=== PATIENT | female | born 1945 | race Hispanic/Latino ===

== ENCOUNTER → 2017-06-18 | Outpatient (CLI) | payer OTHER | END | disposition home or self-care (01) | LOC: RAH 09:29 | PROVIDERS: ATTEND Family Medicine | DX: Z12.31 Encounter for screening mammogram for malignant neoplasm of breast (principal) | CPT/HCPCS: 77067 ==

== ENCOUNTER → 2018-06-19 | Outpatient (CLI) | payer OTHER | END | disposition home or self-care (01) | LOC: RAH 10:09 | PROVIDERS: ATTEND Family Medicine | DX: Z12.31 Encounter for screening mammogram for malignant neoplasm of breast (principal) | CPT/HCPCS: 77067 ==

== ENCOUNTER → 2019-07-24 | Outpatient (CLI) | payer OTHER | END | disposition home or self-care (01) | LOC: RAH 13:10 | PROVIDERS: ATTEND Family Medicine | DX: Z12.31 Encounter for screening mammogram for malignant neoplasm of breast (principal) | CPT/HCPCS: 77067 ==

== ENCOUNTER → 2020-08-06 | Outpatient (CLI) | payer MEDICARE | END | disposition home or self-care (01) | LOC: RAH 10:42 | PROVIDERS: ATTEND Family Medicine | DX: Z12.31 Encounter for screening mammogram for malignant neoplasm of breast (principal) | CPT/HCPCS: 77067 ==

== ENCOUNTER → 2021-08-10 | Outpatient (CLI) | payer MEDICARE | END | disposition home or self-care (01) | LOC: RAH 09:27 | PROVIDERS: ATTEND Family Medicine | DX: Z12.31 Encounter for screening mammogram for malignant neoplasm of breast (principal) | CPT/HCPCS: 77067 ==

== ENCOUNTER → 2022-08-11 | Outpatient (CLI) | payer MEDICARE ==
[~2022-08-11] MED LIST: ANAG1CAP3 PO; ASPI-1197 PO; ATOR40TA71 PO; CLOP75TA32 PO; CYCL30DR OU; LATA2.5D14 OU; METO25TA6 PO; PANT40TA PO
== END | disposition home or self-care (01) ==
LOC: RAH 10:25
PROVIDERS: ATTEND Family Medicine
DX: Z12.31 Encounter for screening mammogram for malignant neoplasm of breast (principal)
CPT/HCPCS: 77067

== ENCOUNTER → 2022-08-23 | Outpatient (CLI) | payer MEDICARE | END | disposition home or self-care (01) | LOC: SHCH 08:59 | PROVIDERS: ATTEND Internal Medicine | DX: R09.89 Other specified symptoms and signs involving the circulatory and respiratory systems (principal) | CPT/HCPCS: 93880 ==

== ENCOUNTER → 2022-08-29 | Outpatient (CLI) | payer MEDICARE | END | disposition home or self-care (01) | LOC: SHCH 09:29 | PROVIDERS: ATTEND Internal Medicine | DX: I08.8 Other rheumatic multiple valve diseases (principal); I25.3 Aneurysm of heart; I31.39 Other pericardial effusion (noninflammatory); I25.10 Atherosclerotic heart disease of native coronary artery without angina pectoris; E78.5 Hyperlipidemia, unspecified | CPT/HCPCS: 93306 ==

== ENCOUNTER → 2022-09-05 | Outpatient (CLI) | payer MEDICARE ==
[2022-09-05 12:27] LABS: CHOLESTEROL 127 mg/dL (<200); HDL CHOLESTEROL 65 mg/dL (35-85); LDL DIRECT 44 mg/dL (0-99); TRIGLYCERIDES 77 mg/dL (30-200)
== END | disposition home or self-care (01) ==
LOC: LAB 08:07
PROVIDERS: ATTEND Internal Medicine
DX: E78.5 Hyperlipidemia, unspecified (principal)
CPT/HCPCS: 36415; 80061

== ENCOUNTER → 2022-10-10 | Outpatient (CLI) | payer MEDICARE | END | disposition home or self-care (01) | LOC: RAH 12:24 | PROVIDERS: ATTEND Obstetrics & Gynecology | DX: N63.11 Unspecified lump in the right breast, upper outer quadrant (principal) | CPT/HCPCS: 76641; 77065 ==

== ENCOUNTER → 2022-10-20 | Outpatient (CLI) | payer MEDICARE | END | disposition home or self-care (01) | LOC: RAH 08:37 | PROVIDERS: ATTEND Obstetrics & Gynecology | DX: N63.21 Unspecified lump in the left breast, upper outer quadrant (principal) | CPT/HCPCS: 76641; 77065 ==

== ENCOUNTER → 2022-10-31 | Outpatient (CLI) | payer MEDICARE ==
[2022-10-31 08:19] LABS: INR 1.03 (0.85-1.15); PROTHROMBIN TIME 11.9 SEC (9.6-11.6)
[2022-10-31 08:20] LABS: PARTIAL THROMBOPLASTIN TIME 36.2 SEC (26.3-35.5)
== END | disposition home or self-care (01) ==
LOC: RAH 07:40
PROVIDERS: ATTEND Internal Medicine Hematology & Oncology
DX: D68.9 Coagulation defect, unspecified (principal); C18.9 Malignant neoplasm of colon, unspecified; D50.9 Iron deficiency anemia, unspecified; Z88.8 Allergy status to other drugs, medicaments and biological substances
CPT/HCPCS: 76642; 85610; 85730

== ENCOUNTER 2023-02-28 15:09 | Observation (INO) | payer MEDICARE ==
[~2023-02-28] VITALS: Ht 160 cm; Wt 70.3 kg
[2023-02-28] MEDS ORDERED: METOCLOPRAMIDE 10 MG/2 ML VIAL IVP ONE (16:30)
[2023-02-28] MEDS ORDERED: PANTOPRAZOLE 40 MG/VIAL IVP ONE (16:30)
[2023-02-28] MEDS ORDERED: LACTATED RINGERS 1000ML 1,000 ML IV ONE (16:30)
[2023-02-28] MEDS ORDERED: MORPHINE 2 MG SYG IVP ONE (16:30)
[2023-02-28 16:55] LABS: BASOPHILS % (AUTO) 1.1 % (0.0-5.0); EOSINOPHILS # (AUTO) 0.14 K/uL (0.00-0.70); EOSINOPHILS % (AUTO) 1.5 % (0.0-8.0); HEMATOCRIT 30.1 % (36-48); IMMATURE GRANULOCYTE ABSOLUTE 0.07 K/uL (0-1); LYMPHOCYTES # (AUTO) 1.3 K/uL (1.0-4.8); LYMPHOCYTES % (AUTO) 14.6 % (21.0-51.0); MEAN CORPUSCULAR HEMOGLOBIN 27.6 pg (27.0-33.0); MEAN CORPUSCULAR HGB CONC 31.6 g/dL (32.0-36.0); MEAN CORPUSCULAR VOLUME 87.5 fL (79-99); MONOCYTES # (AUTO) 0.7 K/uL (0.1-1.0); MONOCYTES % (AUTO) 7.7 % (3.0-13.0); NEUTROPHILS # (AUTO) 6.8 K/uL (1.8-7.7); NEUTROPHILS % (AUTO) 74.3 % (40.0-77.0); PLATELET COUNT (AUTO) 373 K/uL (130-400); RED BLOOD CELL COUNT(AUTO) 3.44 MIL/uL (4.00-5.50); RED CELL DISTRIBUTION WIDTH 16.1 % (11.0-15.5); WHITE BLOOD COUNT (AUTO) 9.1 K/uL (4.8-10.8)
[2023-02-28 17:13] LABS: INR 1.04 (0.85-1.15); PARTIAL THROMBOPLASTIN TIME 37.9 SEC (26.3-35.5)
[2023-02-28 17:15] LABS: APPEARANCE,URINE CLEAR (CLEAR); BILIRUBIN,URINE NEGATIVE (NEGATIVE); COLOR,URINE LIGHT-YELLOW (YELLOW); GLUCOSE, URINE (UA) NEGATIVE (NEGATIVE); KETONES,URINE NEGATIVE (NEGATIVE); LEUKOCYTE ESTERASE ,URINE NEGATIVE Leu/uL (NEGATIVE); NITRATE,URINE NEGATIVE (NEGATIVE); PROTEIN,URINE NEGATIVE (NEGATIVE); UROBILINOGEN,URINE 0.2 mg/dL (0.2-1.0)
[2023-02-28 17:34] LABS: ADD UA MICROSCOPIC YES
[2023-02-28 17:35] LABS: BACTERIA,URINE RARE /HPF (None Seen)
[2023-02-28 18:00] LABS: ALBUMIN 3.3 g/dL (3.5-5.0); BILIRUBIN,TOTAL 0.7 mg/dL (0.2-1.0); CREATININE 1.2 mg/dL (0.5-1.5); POTASSIUM 4.8 mmol/L (3.5-5.1); TOTAL PROTEIN, SERUM 6.5 g/dL (6.0-8.3)
[2023-02-28] MEDS ORDERED: IOHEXOL-350 75 ML VIAL IV ONE (18:36)
[2023-02-28] MEDS ORDERED: PEG 3350/NA SULF,BICARB,CL/KCL 4000 ML SOLN PO ONE (19:30)
[2023-02-28] MEDS ORDERED: LACTULOSE 20 GM/30 ML UDCUP PO ONE (19:30)
[2023-02-28] MEDS ORDERED: KCL 20 MEQ ERTAB PO PRN (20:00)
[2023-02-28] MEDS ORDERED: POTASSIUM CHLORIDE 10% ELIXIR 20 MEQ/15 ML UDCUP PO PRN (20:00)
[2023-02-28] MEDS ORDERED: MAGNESIUM 2GM PREMIX 50ML 50 ML IV PRN (20:00)
[2023-02-28] MEDS ORDERED: POTASSIUM CHLORIDE 20MEQ/100ML 100 ML IV PRN (20:00)
[2023-02-28 20:01] LABS: HEMATOCRIT 31.6 % (36-48)
[2023-02-28] MEDS ORDERED: METO-408 PO (20:05)
[2023-02-28] MEDS ORDERED: RANO500T6 PO (20:05)
[2023-02-28] MEDS ORDERED: FOLI1TAB85 PO (20:05)
[2023-02-28] MEDS ORDERED: SACU1TAB PO (20:05)
[2023-02-28] MEDS ORDERED: IRON COMPLEX PO (20:05)
[2023-02-28 22:28] VITALS: BP 157/68; PULSE 91; RESP 18
[2023-03-01] VITALS (8 sets, daily range): BP systolic 127–160; BP diastolic 50–79; PULSE 76–86; RESP 16–18; O2SAT 100
[2023-03-01 06:55] LABS: BASOPHILS # (AUTO) 0.12 K/uL (0.00-0.20); BASOPHILS % (AUTO) 1.5 % (0.0-5.0); EOSINOPHILS # (AUTO) 0.12 K/uL (0.00-0.70); EOSINOPHILS % (AUTO) 1.5 % (0.0-8.0); HEMATOCRIT 29.5 % (36-48); IMMATURE GRANULOCYTE ABSOLUTE 0.07 K/uL (0-1); LYMPHOCYTES # (AUTO) 1.4 K/uL (1.0-4.8); LYMPHOCYTES % (AUTO) 17.5 % (21.0-51.0); MEAN CORPUSCULAR HEMOGLOBIN 28.2 pg (27.0-33.0); MEAN CORPUSCULAR HGB CONC 31.9 g/dL (32.0-36.0); MEAN CORPUSCULAR VOLUME 88.6 fL (79-99); MONOCYTES # (AUTO) 0.6 K/uL (0.1-1.0); MONOCYTES % (AUTO) 7.6 % (3.0-13.0); NEUTROPHILS # (AUTO) 5.7 K/uL (1.8-7.7); PLATELET COUNT (AUTO) 299 K/uL (130-400); RED BLOOD CELL COUNT(AUTO) 3.33 MIL/uL (4.00-5.50); RED CELL DISTRIBUTION WIDTH 16.1 % (11.0-15.5)
[2023-03-01 07:14] LABS: ALBUMIN 3.2 g/dL (3.5-5.0); BILIRUBIN,TOTAL 0.7 mg/dL (0.2-1.0); CREATININE 1.2 mg/dL (0.5-1.5); MAGNESIUM 1.8 mg/dL (1.80-2.40); POTASSIUM 4.2 mmol/L (3.5-5.1); TOTAL PROTEIN, SERUM 6.3 g/dL (6.0-8.3)
[2023-03-01] MEDS: PANTOPRAZOLE 40 MG/VIAL IVP SCH ×2 (09:59→21:00)
[2023-03-01] MEDS ORDERED: MAGNESIUM CITRATE 296 ML SOLUTION PO ONE (10:00)
[2023-03-01] MEDS ORDERED: LACTULOSE 20 GM/30 ML UDCUP PO ONE ×2 (14:45→16:00)
[2023-03-01] MEDS ORDERED: PEG 3350/NA SULF,BICARB,CL/KCL 4000 ML SOLN PO ONE (15:00)
[2023-03-01] MEDS: ANAGRELIDE HCL PO SCH (21:00)
[2023-03-01] MEDS ORDERED: METOPROLOL SUCCINATE 25 MG TAB.SR.24H PO SCH (21:00)
[2023-03-01] MEDS ORDERED: ATORVASTATIN 40 MG TABLET PO SCH (21:00)
[2023-03-01] MEDS: SACUBITRIL/VALSARTAN 1 EACH TABLET PO SCH (21:00)
[2023-03-01] MEDS ORDERED: RANOLAZINE 500 MG TAB.SR.12H PO SCH (21:00)
[2023-03-01] MEDS ORDERED: BISACODYL 5 MG TABLET.DR PO SCH (22:00)
[2023-03-02] VITALS (20 sets, daily range): BP systolic 118–148; BP diastolic 42–70; PULSE 62–88; RESP 15–18; O2SAT 100
[2023-03-02 05:48] LABS: BASOPHILS # (AUTO) 0.16 K/uL (0.00-0.20); BASOPHILS % (AUTO) 1.3 % (0.0-5.0); EOSINOPHILS # (AUTO) 0.14 K/uL (0.00-0.70); EOSINOPHILS % (AUTO) 1.2 % (0.0-8.0); HEMATOCRIT 33.7 % (36-48); IMMATURE GRANULOCYTE ABSOLUTE 0.16 K/uL (0-1); LYMPHOCYTES # (AUTO) 1.8 K/uL (1.0-4.8); LYMPHOCYTES % (AUTO) 14.7 % (21.0-51.0); MEAN CORPUSCULAR HEMOGLOBIN 28.9 pg (27.0-33.0); MEAN CORPUSCULAR HGB CONC 32.3 g/dL (32.0-36.0); MEAN CORPUSCULAR VOLUME 89.4 fL (79-99); MONOCYTES # (AUTO) 0.8 K/uL (0.1-1.0); MONOCYTES % (AUTO) 6.9 % (3.0-13.0); NEUTROPHILS # (AUTO) 9.1 K/uL (1.8-7.7); NEUTROPHILS % (AUTO) 74.6 % (40.0-77.0); PLATELET COUNT (AUTO) 418 K/uL (130-400); RED BLOOD CELL COUNT(AUTO) 3.77 MIL/uL (4.00-5.50); RED CELL DISTRIBUTION WIDTH 16.5 % (11.0-15.5); WHITE BLOOD COUNT (AUTO) 12.2 K/uL (4.8-10.8)
[2023-03-02 05:58] LABS: ALBUMIN 3.5 g/dL (3.5-5.0); BILIRUBIN,TOTAL 1.1 mg/dL (0.2-1.0); CREATININE 1.3 mg/dL (0.5-1.5); MAGNESIUM 2.4 mg/dL (1.80-2.40); POTASSIUM 3.9 mmol/L (3.5-5.1)
[2023-03-02 06:02] LABS: INR 1.03 (0.85-1.15); PROTHROMBIN TIME 11.9 SEC (9.6-11.6)
[2023-03-02 06:04] LABS: PARTIAL THROMBOPLASTIN TIME 39.8 SEC (26.3-35.5)
[2023-03-02] MEDS ORDERED: Vitamin B Complex/Vit C/Folic Acid PO SCH (09:00)
[2023-03-02] MEDS: ANAGRELIDE HCL PO SCH (09:00)
[2023-03-02] MEDS: SACUBITRIL/VALSARTAN 1 EACH TABLET PO SCH (09:00)
[2023-03-02] MEDS: PANTOPRAZOLE 40 MG/VIAL IVP SCH (09:01)
[2023-03-02] MEDS ORDERED: ZOSYN 3.375GM +NS 50ML IV SCH (10:00)
[2023-03-02] MEDS ORDERED: PROPOFOL 10 MG/ML 20ML VIAL IV ONE (13:46)
[2023-03-02] MEDS ORDERED: SIMETHICONE 40 MG/0.6 ML ML ONE (14:07)
[2023-03-02] MEDS ORDERED: PANT40TA PO (15:38)
== END 2023-03-02 18:35 | disposition home or self-care (01) ==
LOC: EDH 15:09 → INTOOBSV 19:28 → EDHIP 19:28 → 3DH 20:55
PROVIDERS: ADMIT Hospitalist; ATTEND Hospitalist
DX: K92.2 Gastrointestinal hemorrhage, unspecified (principal); D62 Acute posthemorrhagic anemia; E44.1 Mild protein-calorie malnutrition; K44.9 Diaphragmatic hernia without obstruction or gangrene; K21.00 Gastro-esophageal reflux disease with esophagitis, without bleeding; I25.2 Old myocardial infarction; I25.10 Atherosclerotic heart disease of native coronary artery without angina pectoris; K64.8 Other hemorrhoids; Z79.02 Long term (current) use of antithrombotics/antiplatelets; Z90.49 Acquired absence of other specified parts of digestive tract; Z90.710 Acquired absence of both cervix and uterus; Z79.899 Other long term (current) drug therapy; Z98.890 Other specified postprocedural states; Z87.19 Personal history of other diseases of the digestive system; Z95.5 Presence of coronary angioplasty implant and graft; Z79.82 Long term (current) use of aspirin; Z68.27 Body mass index [BMI] 27.0-27.9, adult
CPT/HCPCS: 96361; 96375; 99285; 80053 ×3; 83690; 85025 ×3; 85610 ×2; 85730 ×2; 85014 ×2; 85018 ×2; 86850; 86900; 86901; 82270; 81001; 36415 ×3; 74178; 93005; 96376 ×2; 96365; 96366 ×2; 83735 ×2; 96367; 43235; 45382; J7120; C9113 ×4; J2765; Q9967; G0378 ×29; J3475 ×2; J2704; J2543; A4620; A4215; A4223; A7002; A4222; J7030; J3490

== ENCOUNTER → 2023-09-19 | Outpatient (CLI) | payer MEDICARE ==
[~2023-09-19] MED LIST changes: +ANAG1CAP11 PO; -ANAG1CAP3 PO; -CYCL30DR OU; +FOLI1TAB85 PO; +IRON COMPLEX PO; -LATA2.5D14 OU; +METO-408 PO; -METO25TA6 PO; +RANO500T6 PO; +SACU1TAB PO
== END | disposition home or self-care (01) ==
LOC: SHCH 10:32
PROVIDERS: ATTEND Internal Medicine
DX: I42.9 Cardiomyopathy, unspecified (principal)
CPT/HCPCS: 93306

== ENCOUNTER 2023-11-20 06:52 | Day surgery (SDC) | payer MEDICARE ==
[2023-11-16 13:54] LABS: BASOPHILS % (AUTO) 1.3 % (0.0-5.0); EOSINOPHILS # (AUTO) 0.14 K/uL (0.00-0.70); EOSINOPHILS % (AUTO) 1.8 % (0.0-8.0); HEMATOCRIT 29.7 % (36-48); IMMATURE GRANULOCYTE ABSOLUTE 0.08 K/uL (0-1); LYMPHOCYTES # (AUTO) 1.5 K/uL (1.0-4.8); LYMPHOCYTES % (AUTO) 18.6 % (21.0-51.0); MEAN CORPUSCULAR HGB CONC 31.6 g/dL (32.0-36.0); MEAN CORPUSCULAR VOLUME 91.7 fL (79-99); MONOCYTES # (AUTO) 0.7 K/uL (0.1-1.0); MONOCYTES % (AUTO) 9.3 % (3.0-13.0); NEUTROPHILS # (AUTO) 5.4 K/uL (1.8-7.7); PLATELET COUNT (AUTO) 309 K/uL (130-400); RED BLOOD CELL COUNT(AUTO) 3.24 MIL/uL (4.00-5.50); RED CELL DISTRIBUTION WIDTH 15.7 % (11.0-15.5); WHITE BLOOD COUNT (AUTO) 7.9 K/uL (4.8-10.8)
[2023-11-16 14:00] LABS: CREATININE 1.4 mg/dL (0.5-1.0); POTASSIUM 4.7 mmol/L (3.5-5.1)
[2023-11-16 14:03] LABS: INR 1.18 (0.85-1.15); PROTHROMBIN TIME 12.6 SEC (9.6-11.6)
[2023-11-16 14:05] LABS: PARTIAL THROMBOPLASTIN TIME 35.2 SEC (26.3-35.5)
[2023-11-16 14:08] VITALS: BP 140/70; PULSE 68; RESP 17; TEMP 97.8
[2023-11-16 15:12] LABS: B-TYPE NATRIURETIC PEPTIDE 532 pg/mL (0-100)
[2023-11-20] VITALS (8 sets, daily range): BP systolic 123–147; BP diastolic 59–77; PULSE 70–89; RESP 9–18; TEMP 97.7–98.6
[~2023-11-20] VITALS: Ht 157.5 cm; Wt 63.7 kg
[~2023-11-20 06:52] MED LIST changes: +ASCO500C18 PO; -ASPI-1197 PO; +CARB15DR OP; +CHOL-34 PO; +CITRACAL PO; +LACT1TAB26 PO; +LATA2.5D14 OU; +PRED50TA2 PO; +SALINE NASAL; +VITA1CAP85 PO; +[UNRECOGNIZED DRUG - OTHER] PO; +[UNRECOGNIZED DRUG - OTHER] PO; +estradiol VG; +fiber PO; +one a day PO
[2023-11-20] MEDS: 0.9%NACL 1000ML 1,000 ML IV ONE (08:02)
[2023-11-20] MEDS ORDERED: LIDOCAINE HCL 400MG/20ML VIAL ONE ×3 (08:11→10:16)
[2023-11-20] MEDS ORDERED: IOHEXOL 350 MG/ML 100ML INFUS..BTL IV ONE ×2 (08:11→09:24)
[2023-11-20] MEDS ORDERED: HEParin-NS 1,000 UNIT/500 ML 0 ML IV ONE (08:12)
[2023-11-20] MEDS ORDERED: VERAPAMIL HCL 2.5 MG/ML VIAL ONE ×2 (08:12→09:24)
[2023-11-20] MEDS ORDERED: HEParin 10,000 UNIT/10ML (1,000 UNIT/ML) VIAL ONE ×2 (08:12→10:48)
[2023-11-20] MEDS ORDERED: NITROGLYCERIN 50MG VIAL ONE ×2 (08:14→09:25)
[2023-11-20] MEDS: DiphenhydrAMINE HCL 50 MG/ML VIAL IV ONE (09:20)
[2023-11-20] MEDS ORDERED: HEParin-NS 1,000 UNIT/500 ML 1,000 ML IV ONE (09:24)
[2023-11-20] MEDS ORDERED: MIDAZOLAM HCL 1 MG/ML 2ML VIAL ONE (09:52)
[2023-11-20] MEDS ORDERED: FENTanyl CITRate PF 50 MCG/1 ML 2ML VIAL ONE (09:52)
[2023-11-20] MEDS ORDERED: IOHEXOL-350 50ML VIAL IV ONE (10:06)
[2023-11-20] MEDS ORDERED: HEParin-NS 1,000 UNIT/500 ML 500 ML IV ONE (10:09)
[2023-11-20] MEDS ORDERED: BIVALIRUDIN 250 MG/VIAL IV ONE (10:48)
[2023-11-20] MEDS ORDERED: ASPIRIN 81MG CHEW TAB ONE (11:26)
[2023-11-20] MEDS: 0.9%NACL 1000ML 1,000 ML IV SCH (12:00)
== END 2023-11-20 14:10 | disposition home or self-care (01) ==
LOC: DAH 06:52
PROVIDERS: ATTEND Internal Medicine
DX: I25.118 Atherosclerotic heart disease of native coronary artery with other forms of angina pectoris (principal); I50.22 Chronic systolic (congestive) heart failure; I35.0 Nonrheumatic aortic (valve) stenosis; I25.5 Ischemic cardiomyopathy; I51.89 Other ill-defined heart diseases; I51.7 Cardiomegaly; I34.0 Nonrheumatic mitral (valve) insufficiency; E78.5 Hyperlipidemia, unspecified; I73.9 Peripheral vascular disease, unspecified; Z85.038 Personal history of other malignant neoplasm of large intestine; K58.9 Irritable bowel syndrome, unspecified; Z88.8 Allergy status to other drugs, medicaments and biological substances; Z79.899 Other long term (current) drug therapy
CPT/HCPCS: 80048; 83880; 85025; 85610; 85730; 36415; 71045; 93005; 93460; C9600; C1769 ×2; C1887; C1894 ×4; C1725; C1874; C1760 ×2; J1200; J3010; J3490 ×3; J7030; J1644 ×3; J2250; Q9967 ×2; A4215; A4222; A4221; A4663; A4216; A4606; Q9965 ×2; A4223 ×3; 96360; 96361; 99156; 99157; J0583

== ENCOUNTER → 2023-12-21 | Outpatient (CLI) | payer MEDICARE | END | disposition home or self-care (01) | LOC: SHCH 10:17 | PROVIDERS: ATTEND Internal Medicine | DX: I70.293 Other atherosclerosis of native arteries of extremities, bilateral legs (principal) | CPT/HCPCS: 93925 ==

== ENCOUNTER → 2024-01-28 | Outpatient (CLI) | payer MEDICARE ==
[~2024-01-28] MED LIST changes: +ASPI-1197 PO; +CYAN100099 PO; +DAPA10TA PO; +MV-M1TAB57 PO
[2024-01-28 12:10] LABS: BASOPHILS # (AUTO) 0.16 K/uL (0.00-0.20); BASOPHILS % (AUTO) 1.9 % (0.0-5.0); EOSINOPHILS # (AUTO) 0.24 K/uL (0.00-0.70); EOSINOPHILS % (AUTO) 2.8 % (0.0-8.0); HEMATOCRIT 32.6 % (36-48); IMMATURE GRANULOCYTE ABSOLUTE 0.09 K/uL (0-1); LYMPHOCYTES # (AUTO) 1.7 K/uL (1.0-4.8); LYMPHOCYTES % (AUTO) 19.2 % (21.0-51.0); MEAN CORPUSCULAR VOLUME 93.7 fL (79-99); MONOCYTES # (AUTO) 0.7 K/uL (0.1-1.0); MONOCYTES % (AUTO) 7.7 % (3.0-13.0); NEUTROPHILS # (AUTO) 5.8 K/uL (1.8-7.7); NEUTROPHILS % (AUTO) 67.4 % (40.0-77.0); PLATELET COUNT (AUTO) 363 K/uL (130-400); RED BLOOD CELL COUNT(AUTO) 3.48 MIL/uL (4.00-5.50); RED CELL DISTRIBUTION WIDTH 14.6 % (11.0-15.5); WHITE BLOOD COUNT (AUTO) 8.6 K/uL (4.8-10.8)
[2024-01-28 12:22] LABS: CREATININE 1.3 mg/dL (0.5-1.0); POTASSIUM 4.9 mmol/L (3.5-5.1)
[2024-01-28 12:23] LABS: INR 1.21 (0.85-1.15); PROTHROMBIN TIME 12.9 SEC (9.6-11.6)
[2024-01-28 12:25] LABS: PARTIAL THROMBOPLASTIN TIME 33.9 SEC (26.3-35.5)
[2024-01-28 12:30] LABS: B-TYPE NATRIURETIC PEPTIDE 274 pg/mL (0-100)
== END | disposition home or self-care (01) ==
LOC: LAB 10:08
PROVIDERS: ATTEND Internal Medicine
DX: I25.10 Atherosclerotic heart disease of native coronary artery without angina pectoris (principal); I73.9 Peripheral vascular disease, unspecified; I50.22 Chronic systolic (congestive) heart failure
CPT/HCPCS: 36415; 80048; 83880; 85025; 85610; 85730

== ENCOUNTER 2024-02-05 09:08 | Day surgery (SDC) | payer MEDICARE ==
--- NOTE | 2024-02-01 10:53 | EKG ---
[facility] Test Date: 2024-02-01 Test Time: 11:41:20 Pat Name: RADHA REINA Department: [facility] Room: Gender: F Manager Meeting: [id number] : 1945 Requested By: SHIVAM OLIVAS Order Number: [id number] Reading MD: Jono Horner Measurements Intervals [place] Rate: 61 P: 23 [place]: 251 QRS: 5 QRSD: 83 T: 51 QT: 431 QTc: 436 Interpretive Statements Sinus rhythm Prolonged OH interval Compared to ECG 11/16/2023 13:42:39 No significant changes Electronically Signed On 02-01-2024 16:16:54 SHEAR OPERATOR AUTOMATIC by Jono Horner Please click the below link to view image of tracing.
[2024-02-01 11:17] LABS: POTASSIUM 4.4 mmol/L (3.5-5.1)
[2024-02-01 11:18] VITALS: BP 143/69; PULSE 62; RESP 17; TEMP 97.1
[2024-02-01 11:18] LABS: CREATININE 1.3 mg/dL (0.5-1.0)
[2024-02-01 11:35] LABS: INR 1.14 (0.85-1.15); PROTHROMBIN TIME 12.2 SEC (9.6-11.6)
[2024-02-01 11:49] LABS: PARTIAL THROMBOPLASTIN TIME 34.9 SEC (26.3-35.5)
[2024-02-01 11:58] LABS: BASOPHILS % (AUTO) 1.7 % (0.0-5.0); EOSINOPHILS % (AUTO) 1.8 % (0.0-8.0); HEMATOCRIT 30.9 % (36-48); LYMPHOCYTES % (AUTO) 15.8 % (21.0-51.0); MEAN CORPUSCULAR HEMOGLOBIN 28.7 pg (27.0-33.0); MEAN CORPUSCULAR HGB CONC 31.1 g/dL (32.0-36.0); MEAN CORPUSCULAR VOLUME 92.5 fL (79-99); MONOCYTES % (AUTO) 7.8 % (3.0-13.0); NEUTROPHILS % (AUTO) 71.6 % (40.0-77.0); PLATELET COUNT (AUTO) 355 K/uL (130-400); RED BLOOD CELL COUNT(AUTO) 3.34 MIL/uL (4.00-5.50); RED CELL DISTRIBUTION WIDTH 14.8 % (11.0-15.5); WHITE BLOOD COUNT (AUTO) 9.2 K/uL (4.8-10.8)
[2024-02-01 11:59] LABS: BASOPHILS # (AUTO) 0.16 K/uL (0.00-0.20); EOSINOPHILS # (AUTO) 0.17 K/uL (0.00-0.70); LYMPHOCYTES # (AUTO) 1.5 K/uL (1.0-4.8); MONOCYTES # (AUTO) 0.7 K/uL (0.1-1.0); NEUTROPHILS # (AUTO) 6.6 K/uL (1.8-7.7); NUCLEATED RED BLOOD CELLS 0.1 % (0.0-0.19)
[2024-02-01 13:10] LABS: B-TYPE NATRIURETIC PEPTIDE 344 pg/mL (0-100)
--- NOTE | 2024-02-04 16:49 | NUR ---
RE: LABS REPORTED CBC RESULTS AND BUN 34/CREAT 1.[address] OLIVAS. NO NEW ORDERS RECEIVED.
[~2024-02-05] VITALS: Ht 154.9 cm; Wt 64.8 kg
[2024-02-05] VITALS (23 sets, daily range): BP systolic 98–153; BP diastolic 40–69; PULSE 74–93; RESP 11–16; TEMP 97.2–97.4
[~2024-02-05 09:08] MED LIST changes: -CARB15DR OP; -PRED50TA2 PO; -RANO500T6 PO; -SALINE NASAL; -VITA1CAP85 PO; -[UNRECOGNIZED DRUG - OTHER] PO; -fiber PO; -one a day PO
[2024-02-05] MEDS: 0.9%NACL 1000ML 1,000 ML IV ONE (09:46)
[2024-02-05] MEDS ORDERED: LIDOCAINE HCL 400MG/20ML VIAL ONE (10:58)
[2024-02-05] MEDS ORDERED: NITROGLYCERIN 50MG VIAL ONE (10:59)
[2024-02-05] MEDS ORDERED: HEParin-NS 1,000 UNIT/500 ML 1,000 ML IV ONE (10:59)
[2024-02-05] MEDS ORDERED: IODIXANOL 320 MG/ML 100 ML VIAL ONE ×2 (10:59→12:58)
[2024-02-05] MEDS ORDERED: HEParin 10,000 UNIT/10ML (1,000 UNIT/ML) VIAL ONE (10:59)
[2024-02-05] MEDS ORDERED: MIDAZOLAM HCL 1 MG/ML 2ML VIAL ONE ×2 (11:24→11:44)
[2024-02-05] MEDS ORDERED: FENTanyl CITRate PF 50 MCG/1 ML 2ML VIAL ONE (11:24)
[2024-02-05] MEDS ORDERED: hydrALAZine 20MG/ML VIAL ONE (13:10)
[2024-02-05] MEDS ORDERED: hydrALAZine 20MG/ML VIAL IV PRN (13:30)
[2024-02-05] MEDS ORDERED: 0.9%NACL 1000ML 1,000 ML IV SCH (13:30)
[2024-02-05] MEDS ORDERED: acetaMINOPHEN WITH coDEINE 1 TAB TAB PO PRN (13:30)
[2024-02-05] MEDS ORDERED: ATROPINE 1MG SYG IVP ONE (15:57)
--- NOTE | 2024-02-05 16:08 | NUR ---
RE: SHEATH REMOVED 10CC BLOOD REMOVED FROM SHEATH SITE AND DISPOSED OFF. SHEATH REMOVED FROM LEFT GROIN, DSTAT APPLIED AND MANUAL PRESSURE APPLIED FOR 20 MINS. PATIENT TOLERATED WELL, NO BLEEDING OR HEMATOMA NOTED. VITAL SIGNS STABLE. PATIENT INSTRUCTED TO LAY FLAT AND KEEP LLE FLAT AND STRAIGHT, PATIENT VERBALIZED UNDERSTANDING. FAMILY AT BEDSIDE
--- NOTE | 2024-02-05 22:02 | NUR ---
patient discharged from facility via wheelchair by missael miranda and assisted into private vehicle driven by spouse
--- NOTE | 2024-02-14 10:19 | PRN ---
Cath Procedure Report CATH PROCEDURE REPORT PERIPHERAL ANGIOGRAM REPORT Date of Service: February 05, 2024 PROCEDURE: Abdominal aortogram Bilateral lower extremity peripheral angiography Percutaneous transluminal angioplasty to the right superficial femoral artery [facility] Rapid cross 4.0 x 40 mm balloon followed by Medtronic Impact 5.0 x 80 mm drug-coated balloon INDICATION: Peripheral artery disease, abnormal arterial duplex showing monophasic waveforms of the left SFA and right FIELD MAP TECHNICIAN with claudication in the bilateral lower extremities, right worse than left [place] class III. MEDICAL ASSISTANT PRN: Shivam Briones DO DESCRIPTION OF PROCEDURE: After informed consent was obtained, patient brought back to the Records Management Engineer suite in fasting state. Bilateral groins were prepped and draped in sterile fashion. 1% lidocaine was used of the subcutaneous tissues on the left side. Using ultrasound and fluoroscopic guidance, a 6 Cypriot short sheath was placed in the left common femoral artery using micropuncture technique. 5 Cypriot flush catheter was advanced into the distal abdominal aorta for abdominal aortography. Over an 035 Glidewire advantage wire, the Omni Flush catheter was advanced to the right external iliac artery for right lower extremity digital subtraction angiography. Then, we proceeded with intervention. A 6 Cypriot by 45 cm sheath was placed distal tip parked in the right common femoral artery. 70 units/kg of heparin was given via peripheral IV and ACT was monitored throughout the procedure with additional heparin given as needed to maintain a therapeutic ACT of greater than 250. Balloon angioplasty was performed to the right superficial femoral artery ostial and proximal stenosis first using a rapid cross 4.0 x 40 mm balloon followed by drug-coated balloon angioplasty with Medtronic Impact 5.0 x 80 mm balloon deployed at nominal pressures for 3 minutes. Post angioplasty angiography revealed nonflow limiting dissections persistent despite repeat 1 minute balloon inflation to this region. Patient tolerated the procedure well without immediate complications. Hemostasis achieved at the left common femoral artery with use of manual pressure. FINDINGS: Abdominal aorta: Patent, angiographically free of disease Right lower extremity Common iliac:Patent, angiographically free of disease External iliac:Patent, angiographically free of disease Internal iliac:Patent, angiographically free of disease Profunda:Patent, angiographically free of disease Superficial femoral artery: There is eccentric 80% stenosis at the ostial to proximal, with subsequent 70% tandem stenosis. These lesions were treated with balloon angioplasty and drug-coated balloon angioplasty to less than 20% residual with results of nonflow limiting dissections in the treatment zone. The distal SFA with mild diffuse disease. Popliteal: 20 to 20% popliteal stenosis Anterior tibialis: TP trunk:Patent, angiographically free of disease Peroneal: Patent, angiographically free of disease Posterior tibialis: 50 to 60% distal posterior tibialis Left lower extremity Common iliac:Patent, angiographically free of disease External iliac:Patent, angiographically free of disease Internal iliac:Patent, angiographically free of disease Profunda:Patent, angiographically free of disease Superficial femoral artery: There are tandem stenosis of the proximal left SFA percent, followed by proximal to mid 50 to 60% focal stenosis. Mid SFA with 30% stenosis. Popliteal: Proximal 40 to 50% stenosis Anterior tibialis:Patent, angiographically free of disease TP trunk:Patent, angiographically free of disease Peroneal:Patent, angiographically free of disease Posterior tibialis: 30 to 40% distal stenosis There is three-vessel runoff to the bilateral feet however poor outflow extending from the midfoot on the left. SUMMARY: 1. Right superficial femoral artery ostial to proximal stenosis of 80% followed by 70% status percutaneous transluminal angioplasty using rapid cross POBA followed by Medtronic Impact drug-coated balloon angioplasty. 2. Consider staged intervention the Left superficial femoral artery stenoses. SHIVAM BRIONES DO Feb 14, 2024 10:19
== END 2024-02-05 22:02 | disposition home or self-care (01) ==
LOC: DAH 09:08
PROVIDERS: ATTEND Internal Medicine
DX: I70.213 Atherosclerosis of native arteries of extremities with intermittent claudication, bilateral legs (principal); I25.10 Atherosclerotic heart disease of native coronary artery without angina pectoris; E78.5 Hyperlipidemia, unspecified; I35.0 Nonrheumatic aortic (valve) stenosis; Z85.038 Personal history of other malignant neoplasm of large intestine; Z95.5 Presence of coronary angioplasty implant and graft; I25.2 Old myocardial infarction; Z88.8 Allergy status to other drugs, medicaments and biological substances; Z79.82 Long term (current) use of aspirin; Z79.01 Long term (current) use of anticoagulants; Z79.899 Other long term (current) drug therapy
CPT/HCPCS: 80048; 83880; 85025; 85610; 85730 ×2; 36415 ×2; 93005; 37224; 75716; 85347 ×3; A6260; C1725; C1894 ×2; C1893; C2623; C1769 ×3; C1887; J3010; J3490 ×2; J7030; J0360; J1644 ×2; J2250 ×2; Q9967; A4215; A4222; A4221; A4663; A4216; A4606; A4223 ×3; 99156; 99157; J0461

== ENCOUNTER → 2024-06-17 | Outpatient (CLI) | payer MEDICARE ==
--- NOTE | 2024-06-18 17:08 | HMCSR ---
APPROVED REPORT Laterality: Bilateral Indications PVD VELOCITY AND DOPPLER WAVEFORM ANALYSIS Ext Iliac Art. (R)cm/sec, Ext Iliac Art. (L) cm/sec, PLY BANDER (R) 146.8cm/sec, Triphasic, PLY BANDER (L) 104.2cm/sec, Triphasic, Prof Fem Art. (R) 198.3cm/sec, Biphasic, Prof Fem Art. (L) 80.8cm/sec, Biphasic, Fem Art Prox. (R) 159.9cm/sec, Triphasic, Fem Art Prox. (L) 422.7cm/sec, Monophasic, Severe > 75% Fem Art Mid. (R) 139.4cm/sec, Biphasic, Fem Art Mid. (L) 32.1cm/sec, Monophasic, Fem Art Dist (R) 71.8cm/sec, Biphasic, Fem Art Dist. (L) 57.2cm/sec, Monophasic, Pop Art(AK) (R) 112.3cm/sec, Biphasic, Pop Art (AK) (L) 43.7cm/sec, Monophasic, Pop Art (Fossa)(R) 104.2cm/sec, Biphasic, Pop Art (Fossa) (L) 55.5cm/sec, Monophasic, Pop Art(BK) (R) 97.2cm/sec, Biphasic, Pop Art (BK) (L) 42.6cm/sec, Monophasic, DEPUTY CHIEF SHERIFF Dist. (R) 58.0cm/sec, Biphasic, DEPUTY CHIEF SHERIFF Dist. (L) 21.4cm/sec, Monophasic, Per Art Dist. (R) 46.9cm/sec, Biphasic, Per Art Dist. (L) 21.3cm/sec, Monophasic, [place] Dist. (R) 63.5cm/sec, Biphasic, [place] Dist. (L) 21.6cm/sec, Monophasic, Technologist Impression Diffuse atherosclerosis throughout the bilateral lower extremities. Multiphasic waveforms seen in the RLE. Mainly monophasic waveforms seen in the LLE. Stenosis seen at the level of the LT. SFA Prox. 422.7 cm/s suggestive of >75% stenosis. Conclusion Diffuse atherosclerosis throughout the bilateral lower extremities. Multiphasic waveforms seen in the RLE. Mainly monophasic waveforms seen in the LLE. Stenosis seen at the level of the LT. SFA Prox. 422.7 cm/s suggestive of >75% stenosis. Conclusion Diffuse atherosclerosis throughout the bilateral lower extremities. Multiphasic waveforms seen in the RLE. Mainly monophasic waveforms seen in the LLE. Stenosis seen at the level of the LT. SFA Prox. 422.7 cm/s suggestive of >75% stenosis.
== END | disposition home or self-care (01) ==
LOC: SHCH 10:10
PROVIDERS: ATTEND Internal Medicine
DX: I70.203 Unspecified atherosclerosis of native arteries of extremities, bilateral legs (principal); I25.5 Ischemic cardiomyopathy
CPT/HCPCS: 93925

== ENCOUNTER → 2024-08-01 | Outpatient (CLI) | payer MEDICARE ==
[~2024-08-01] MED LIST changes: +CYAN-37 PO; -CYAN100099 PO
--- NOTE | 2024-08-01 12:22 | HMCIMG ---
CHEST 1VW HISTORY: Cough COMPARISON: 11/16/2023 FINDINGS: A frontal projection of the chest was obtained. No acute pulmonary infiltrates is seen. The heart is normal in size. Prominent interstitial markings are seen. Degenerative changes are seen. No evidence of aortic calcification is seen. IMPRESSION: 1. No acute pulmonary infiltrate is seen.
== END | disposition home or self-care (01) ==
LOC: RAH 11:30
PROVIDERS: ATTEND Internal Medicine
DX: R05.9 Cough, unspecified (principal); M47.814 Spondylosis without myelopathy or radiculopathy, thoracic region
CPT/HCPCS: 71045

== ENCOUNTER 2024-12-03 05:47 | Day surgery (SDC) | payer MEDICARE ==
[2024-12-01 12:12] LABS: IMMATURE GRANULOCYTE ABSOLUTE 0.21 K/uL (0-1); NUCLEATED RED BLOOD CELLS 0.0 % (0.0-0.19); PLATELET COUNT (AUTO) 279 K/uL (130-400); RED BLOOD CELL COUNT(AUTO) 3.15 MIL/uL (4.00-5.50); RED CELL DISTRIBUTION WIDTH 19.4 % (11.0-15.5); WHITE BLOOD COUNT (AUTO) 8.4 K/uL (4.8-10.8)
[2024-12-01 12:18] VITALS: BP 133/48; PULSE 70; RESP 16; TEMP 97.3
[2024-12-01 12:19] LABS: CREATININE 1.3 mg/dL (0.5-1.0); GLOMERULAR FILTR. RATE CALC 42.0 mL/min (>90); GLUCOSE,RANDOM 99.0 mg/dL (70-105); SODIUM SERUM 139.0 mmol/L (136-145); UREA NITROGEN, BLOOD 41.0 mg/dL (7-18)
[2024-12-01 12:22] LABS: INR 1.26 (0.85-1.15)
[2024-12-01 12:29] LABS: APPEARANCE,URINE CLEAR (CLEAR); GLUCOSE, URINE (UA) 500 mg/dL (NEGATIVE); LEUKOCYTE ESTERASE ,URINE NEGATIVE Leu/uL (NEGATIVE); NITRATE,URINE NEGATIVE (NEGATIVE); OCCULT BLOOD,URINE NEGATIVE (NEGATIVE)
[2024-12-01 12:37] LABS: ADD UA MICROSCOPIC YES
[2024-12-01 12:38] LABS: SQUAMOUS EPITHELIAL CELL,UR Rare /HPF (0-2)
--- NOTE | 2024-12-01 12:48 | EKG ---
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
--- NOTE | 2024-12-02 12:38 | HMCIMG ---
EXAM: CR Chest, 1 views. CLINICAL HISTORY: Cough. COMPARISON: None provided. FINDINGS: The lungs show no infiltrate or other acute findings. No pleural effusion or pneumothorax. Mild cardiomegaly is noted. No acute osseous abnormality. IMPRESSION: No infiltrate or effusion. Mild cardiomegaly is noted. /[place]
--- NOTE | 2024-12-02 15:37 | NUR ---
REPORT REPORTED TO DR OLIVAS INR/H&H/BUN/CREAT AND PT ALLERGIC TO TOPICAL IODINE. NO NEW ORDERS GIVEN. OK TO PROCEED
[~2024-12-03] VITALS: Ht 154.9 cm; Wt 60.3 kg
[2024-12-03] VITALS (27 sets, daily range): BP systolic 135–164; BP diastolic 47–90; PULSE 62–88; RESP 9–18; TEMP 97.2–97.8
[~2024-12-03 05:47] MED LIST changes: -ASPI-1197 PO; +FIBER CAPSULES PO; +FOLI0.8T22 PO; -FOLI1TAB85 PO; -LATA2.5D14 OU; +LATA2.5D7 OU; +MULT-1337 PO; -MV-M1TAB57 PO; +REFRESH EYE DROPS OU; +RIVA20TA PO; -SACU1TAB PO; +SACU1TAB7 PO; +[UNRECOGNIZED DRUG - REMARK] PO
[2024-12-03] MEDS: 0.9%NACL 1000ML 1,000 ML IV SCH (07:00)
[2024-12-03] MEDS ORDERED: LIDOCAINE HCL 400MG/20ML VIAL ONE ×2 (07:07→07:19)
[2024-12-03] MEDS ORDERED: HEParin-NS 1,000 UNIT/500 ML 1,000 ML IV ONE (07:07)
[2024-12-03] MEDS ORDERED: IOHEXOL 350 MG/ML 100ML INFUS..BTL IV ONE (07:07)
[2024-12-03] MEDS ORDERED: NITROGLYCERIN 50MG VIAL ONE (07:08)
[2024-12-03] MEDS ORDERED: MIDAZOLAM HCL 1 MG/ML 2ML VIAL ONE (07:32)
--- NOTE | 2024-12-03 08:26 | PRN ---
Cath Procedure Report CATH PROCEDURE REPORT CARDIAC CATHETERIZATION REPORT Date of Service: Dec 03, 2024 PROCEDURE: Left heart catheterization with selective right left coronary angiography Right heart catheterization Conscious sedation INDICATION: Aortic stenosis PSYCHOLOGY TECHNICIAN: Shivam Briones DO DESCRIPTION OF PROCEDURE: After informed consent was obtained, patient was prepped and draped in sterile fashion. Time-out was performed. The right common femoral vein and right common femoral artery for access using fluoroscopic and ultrasound guidance with micropuncture technique with an 8 Anguillan short sheath placed in the right common femoral vein and 6 Anguillan short sheath placed in the right common femoral artery. S tip [place] was used to perform the right heart catheterization, O2 saturation run and hemodynamic measurements. A JR4 6 [place]guillan catheter was used for selective angiography of the right coronary artery in multiple obliquities. A 6 Anguillan JL 4.0 catheter was used to selectively engage left coronary artery and multiple angiographic views were obtained. She has [address] to be removed in recovery via manual pressure due to the patient's history of peripheral arterial disease. Patient tolerated the procedure well without immediate complications. FINDINGS: Right heart catheterization O2 saturations AO 96%, PA 71.9%, RV 74.1%, RA 74.9% RA 8/6/4, RV 45/4, PA 48/15/31, pulmonary capillary wedge pressure 32/15/31 Cardiac output 4.76, cardiac index 2.99 Left heart catheterization Left main is angiographically normal, trifurcate into an LAD, ramus and left circumflex Ramus intermedius is angiographically normal Left circumflex is nondominant. There is a small OM 1, angiographically free of disease. Mid left circumflex 20% stenosis. There is an OM2 with prior placed widely patent 2 overlapping stents jailing a small inferior branch. Right coronary artery is dominant giving off the RPDA and posterolateral extension. Proximal 20% stenosis, mid 10-20% stenosis. Left anterior descending proximal 20% stenosis. It is otherwise angiographically normal, however small distal LAD measuring 1.5-2 mm caliber. The left ventricular ejection fraction 45% by outpatient echocardiogram study The gradient on pullback across the aortic valve is 21 mm Hg LVEDP 11 mm of mercury CONTRAST: 35 ml SUMMARY: 1. Widely patent prior placed OM2 stents 2. Nonobstructive coronary artery disease 3. Moderate aortic stenosis. There is discordant and the outpatient transthoracic echocardiogram invasive hemodynamic measurements. Gradient across the aortic valve 21 mm Hg. SHIVAM BRIONES DO Dec 03, 2024 08:26
[2024-12-03] MEDS ORDERED: 0.9%NACL 1000ML 1,000 ML IV SCH (08:30)
[2024-12-03] MEDS ORDERED: ATROPINE 1MG SYG IVP ONE (09:30)
--- NOTE | 2024-12-03 10:13 | NUR ---
VENOUS SHEATH REMOVED AT THIS TIME D-STAT APPLIED MANUAL HOLD X 20 MINUTES Addendum: 12/03/24 at 1049 by FRANK ASHER RN RN RIGHT FEMORAL SITE
--- NOTE | 2024-12-03 10:14 | NUR ---
ARTERIAL SHEATH REMOVED AT THIS TIME D-STAT APPLIED HELD PRESSURE X 20 MINUTES PT TOLERATED WELL. NAD VSS Addendum: 12/03/24 at 1049 by FRANK ASHER RN RN RIGHT FEMORAL SITE
--- NOTE | 2024-12-03 10:35 | NUR ---
RIGHT FEMORAL SITE ASYMPTOMATIC AFTER HOLDING PRESSURE X 20 MINUTES. GOOD DISTAL PULSE DORSALIS PEDIS RLE
--- NOTE | 2024-12-03 11:50 | NUR ---
REPORT: REPORT GIVEN TO [facility] RN REGARDING PATIENTS STATUS.
== END 2024-12-03 16:33 | disposition home or self-care (01) ==
LOC: DAH 05:47 → EDSTATUS 11:00 → DAH 16:33
PROVIDERS: ATTEND Internal Medicine
DX: I35.0 Nonrheumatic aortic (valve) stenosis (principal); I25.10 Atherosclerotic heart disease of native coronary artery without angina pectoris; I44.0 Atrioventricular block, first degree; K58.9 Irritable bowel syndrome, unspecified; E78.5 Hyperlipidemia, unspecified; I25.5 Ischemic cardiomyopathy; I73.9 Peripheral vascular disease, unspecified; Z88.5 Allergy status to narcotic agent; Z85.038 Personal history of other malignant neoplasm of large intestine; Z79.01 Long term (current) use of anticoagulants; Z79.899 Other long term (current) drug therapy
CPT/HCPCS: 80048; 83880; 85025; 85610; 85730; 81001; 36415; 71045; 93005; 93460; 99156; 99157 ×2; C1894; C1769; J1200; J3010; J3490 ×3; J7030; J0461; J2250; J1644; Q9967; A4215; A6402; A4657; A7002; A4222; A4221; A4663; A4216; A4606; A4223 ×3; A4554; A4335; 93453; 96360; 96361